=== PATIENT | female | born 1975 | race Two or more races ===

== ENCOUNTER 2021-01-12 14:35 | Emergency (ER) | payer MEDICAID ==
[~2021-01-12] VITALS: Ht 154.9 cm; Wt 59.0 kg
[2021-01-12 15:00] VITALS: BP 116/73
--- NOTE | 2021-01-12 15:12 | NUR ---
DENZEL ROSE AT BEDSIDE FOR EVAL.
[2021-01-12] MEDS ORDERED: IBUPROFEN 600 MG TABLET PO ONE (15:30)
[2021-01-12] MEDS ORDERED: IBUPROFEN 600 MG TABLET ONE (16:31)
[2021-01-12] MEDS ORDERED: IBUP-1955 PO (16:37)
--- NOTE | 2021-01-12 17:26 | NUR ---
Patient discharged to home in stable condition. Written and verbal after care instructions given. Patient verbalizes understanding of instruction.
== END 2021-01-12 17:28 | disposition home or self-care (01) ==
LOC: ER 14:40
DX: S63.682A Other sprain of left thumb, initial encounter (principal); W01.0XXA Fall on same level from slipping, tripping and stumbling without subsequent striking against object, initial encounter; Y93.89 Activity, other specified; Y92.89 Other specified places as the place of occurrence of the external cause; Y99.8 Other external cause status
CPT/HCPCS: 73140-TC